=== PATIENT | female | born 1960 | race Caucasian/White ===

== ENCOUNTER → 2017-01-21 | Day surgery (SDC) | payer BC ==
[~2017-01-21] MED LIST: ACETAMINOPHEN 1,000 MG/100 ML BTL IV ONE; BUPIVACAINE 0.75% W/EPI MPF 30ML VIAL IVP ONE; CEFAZOLIN 2 Gram 2 GM/50 ML BAG IVPB ONE; DESFLURANE 240 ML BTL INH ONE; DEXAMETHASONE 4 MG/ML 1ML VIAL IVP ONE; EPINEPHRINE 1 MG/ML AMPUL SQ ONE; FAMOTIDINE 20MG TABLET PO ONE; FENTANYL PF 100MCG/2ML VIAL IV ONE; LIDOCAINE 2% MDV (20MG/ML) 20ML VIAL IV ONE; MECLIZINE 25 MG TABLET PO ONE; METOCLOPRAMIDE 10 MG TABLET PO ONE; METOCLOPRAMIDE HCL 10 MG/2 ML VIAL IVP ONE; MIDAZOLAM HCL 2MG/2ML VIAL IV ONE; MORPHINE SULFATE 5 MG/ML PFS IVP ONE; MORPHINE SULFATE PF 10MG/10ML VIAL IV ONE; ONDANSETRON HCL IV 4 MG/2 ML VIAL IVP ONE; PHENYLEPHRINE HCL 10 MG/ML VIAL IVP ONE; PROPOFOL 10 MG/ML VIAL IV ONE; ROPIVACAINE HCL (NAROPIN) /PF 5MG/ML 20ML VIAL IV ONE; SUCCINYLCHOLINE 20 MG/ML 10ML IVP ONE
--- NOTE | 2017-01-22 07:12 | Operative Note ---
DATE: 01/21/2017. PREOPERATIVE DIAGNOSIS: Right shoulder impingement and question tear of the rotator cuff. POSTOPERATIVE DIAGNOSES: 1. CHRONICALLY TORN RIGHT ROTATOR CUFF TENDON. 2. ANTERIOR GLENOHUMERAL LABRAL TEAR. 3. RIGHT SHOULDER EXTERNAL IMPINGEMENT WITH SUBACROMIAL BURSITIS. 4. ARTHROSIS, RIGHT DISTAL CLAVICLE. PROCEDURES: 1. OPEN REPAIR OF A CHRONICALLY TORN RIGHT ROTATOR CUFF TENDON. 2. RIGHT SHOULDER ARTHROSCOPY WITH INTRA-ARTICULAR DEBRIDEMENT. 3. RIGHT SHOULDER OPEN ACROMIOPLASTY, CORACOACROMIAL LIGAMENT RESECTION, AND SUBACROMIAL BURSECTOMY. 4. RIGHT SHOULDER DISTAL CLAVICLE RESECTION. STAFF SURGEON: Brett Perez M.D. ANESTHESIA: General. PREPARATION: ChloraPrep. INDIVIDUAL CONSIDERATIONS: None. DESCRIPTION OF PROCEDURE: The patient was taken to the operating and placed supine on the operating table. She was placed in a semi-seated beach chair position, and her right arm and shoulder were prepped and draped in the usual fashion. Examination under anesthesia showed no instability. The patient had posterior portal identified for arthroscopy. The skin was infiltrated with 0.5% Marcaine with epinephrine prior. An 18-gauge spinal needle was easily placed into the joint, and the joint was inflated with normal saline with a 60 mL syringe. A stab wound was made, and a blunt-tipped trocar for the scope was easily placed in the joint, and the joint was inflated with normal saline. An anterior accessory portal was then made just inferior to the intact long head of the biceps tendon in a retrograde fashion with a Wissinger caridad, and the joint was irrigated out. The patient had an obvious tear of the supraspinatus tendon. The long head was intact. The glenohumeral joint was intact. The subscapularis was normal. There was some fraying of the anterior labrum. This was debrided with a shaver. No significant synovitis was seen in the pouch. After irrigation, the portals were closed with mauri. The patient had an anterior approach to the subacromial space and distal clavicle. The skin was again infiltrated with 0.5% Marcaine with epinephrine prior. Sharp dissection was carried down through the skin and subcutaneous tissue. Small veins were coagulated with a Bovie. An anterior deltoid interval was developed. Care was taken not to split the deltoid more than about 4.0 cm distal to the anterior tip of the acromion to prevent injury to the axillary nerve. Once in the subacromial space, there was a large magana of fluid consistent with a tear. The deltoid was then taken subperiosteally off the anterior aspect of the downsloping acromion, over the top of the intact coracoacromial ligament, and off the anterior aspect of the degenerated distal clavicle. The coracoacromial ligament was resected with a Bovie. The distal clavicle was resected with an oscillating saw, taking about 1.0 cm. The patient had a downsloping acromion, and an anterior acromioplasty was performed , taking the anterior spur and tapering until it was posteromedial to include the spurs extending into the acromioclavicular joint. The undersurface was then smoothed with a rasp. A very thickened bursa was then resected out. This exposed the rotator cuff. The patient had about a 2.0 cm tear which was retracted. It was easily mobile. It was quite vascular. It was debrided to good bleeding tendon. Near the tuberosity, a slight trough was made using a bur , and multiple #2 Ethibond sutures were placed in retention fashion into the end of the tendon. They were brought down into the trough through holes distally, affecting essentially anatomic repair. I put the shoulder through a full range of motion to ensure there was no further impingement. After irrigation, the deltoid was reattached to the remaining acromion with multiple interrupted #2 Vicryl going directly through the bony acromion. The periosteal cuff of the distal clavicle was closed with a running #2 Vicryl. The anterior deltoid interval was closed with running #1 Vicryl. Subcutaneous was closed with #2-0+ Vicryl. The skin was closed with running #2-0 Quill. A total of 10 mL of 0.75% Marcaine with epinephrine along with 10 mg of morphine was then injected into the subacromial space through a sterile 18-gauge spinal needle, and a sterile bulky compressive Aquacel-type dressing was applied. The patient tolerated the procedures well, and needle and sponge counts were correct. Estimated blood loss was minimal, and she was taken back recovery in good condition. There were no complications. JOB NUMBER: [id number] [facility]
== END | disposition home or self-care (01) ==
LOC: SUR 06:54
PROVIDERS: ATTEND Orthopaedic Surgery
DX: M75.41 Impingement syndrome of right shoulder (principal); M65.9 Synovitis and tenosynovitis, unspecified; M75.111 Incomplete rotator cuff tear or rupture of right shoulder, not specified as traumatic; M94.211 Chondromalacia, right shoulder; M19.011 Primary osteoarthritis, right shoulder
CPT/HCPCS: 23412; 23130; 29822; 01630; 64415; J2405; J3010; J0690; J2270; J2795; J3490; J0171; J0330; J2370; J2765